=== PATIENT | male | born 1950 | race Caucasian/White ===

== ENCOUNTER → 2016-12-04 | Outpatient (CLI) | payer OTHER ==
[~2016-12-04] MED LIST: HELIOCARE PO; NIACINAMIDE500 MG PO
== END | disposition home or self-care (01) ==
LOC: CDC 08:22
DX: R00.1 Bradycardia, unspecified (principal); I44.4 Left anterior fascicular block
CPT/HCPCS: 93000

== ENCOUNTER 2017-04-05 11:49 | Emergency (ER) | payer OTHER ==
[~2017-04-05] VITALS: Ht 177.8 cm; Wt 90.0 kg
[2017-04-05 12:38] LABS: HEMATOCRIT 44.9 % (38.0-50.0); MCH 31.9 PG (29.0-34.0); MCV 91.3 FL (86-99); MEAN PLAT.VOLUME 11.2 uM^3 (9.0-12.4); PLATELET COUNT 260 K/uL (156-360); RBC DIS.WIDTH-CV 13.7 % (11.8-14.6); RBC DIS.WIDTH-SD 45.4 % (39-53); RED BLOOD COUNT 4.92 M/uL (4.00-5.50); WHITE BLOOD COUNT 9.5 K/uL (4.1-10.2)
[2017-04-05 13:33] LABS: CHLORIDE 110 mEq/L (99-109); POTASSIUM 4.5 mEq/L (3.7-5.4); SODIUM 140 mEq/L (136-147)
[2017-04-05 13:35] LABS: GLUCOSE 116 mg/dL (70-99)
[2017-04-05 13:36] LABS: ANION GAP 5 MEQ/L (2-14)
[2017-04-05 13:37] LABS: TOTAL BILIRUBIN 0.5 mg/dL (0.0-1.0)
[2017-04-05 13:38] LABS: ALKALINE PHOSPHATASE 71 IU/L (3-129)
[2017-04-05 13:39] LABS: GFR ESTIMATE (CALCULATED) > 59 mL/min/
[2017-04-05 13:40] LABS: UREA NITROGEN (BUN) 16 mg/dL (9-23)
[2017-04-05 13:42] LABS: LIPASE 11 U/L (1.0-51.0)
[2017-04-05 15:36] LABS: ADD MIUA? YES; BILIRUBIN NEGATIVE; BLOOD MODERATE; COLOR YELLOW ((YELLOW)); GLUCOSE (STRIP) NEGATIVE; KETONES NEGATIVE; LEUKOCYTES NEGATIVE; NITRITE NEGATIVE; PROTEIN (STRIP) NEGATIVE; SPECIFIC GRAVITY 1.015 (1.000-1.030); UROBILINOGEN 0.2 MG/DL (0.2-1.0)
[2017-04-05 15:44] LABS: BACTERIA RARE /HPF; EPITHELIAL CELLS NONE SEEN /HPF; MUCUS TRACE /LPF; UCUL ADDED? NO; WHITE BLOOD CELLS 0-5 /HPF (0-5)
[2017-04-05] MEDS ORDERED: MOTRIN800 MG PO (16:07)
[2017-04-05 17:13] VITALS: BP 132/79
== END 2017-04-05 17:13 | disposition home or self-care (01) ==
LOC: EME 11:49
DX: N20.0 Calculus of kidney (principal); R19.7 Diarrhea, unspecified; Z85.828 Personal history of other malignant neoplasm of skin
CPT/HCPCS: 74176; 80053; 81003; 83690; 85027; 99281; 99284; J1885; J2270; J2405

== ENCOUNTER 2017-05-04 11:32 | Day surgery (SDC) | payer OTHER ==
[~2017-05-04] VITALS: Ht 177.8 cm; Wt 89.8 kg
[~2017-05-04 11:32] MED LIST changes: +MOTRIN800 MG PO
[2017-05-04 12:15] VITALS: BP 167/98
[2017-05-04 15:16] VITALS: BP 149/74
[2017-05-04 15:40] VITALS: BP 136/86
[2017-05-04 16:10] VITALS: BP 138/70
[2017-05-04 16:50] VITALS: BP 140/80
== END 2017-05-04 17:02 | disposition home or self-care (01) ==
LOC: SDC 11:32
PROVIDERS: Urology
DX: N20.1 Calculus of ureter (principal); I11.9 Hypertensive heart disease without heart failure; I77.810 Thoracic aortic ectasia; R00.1 Bradycardia, unspecified; Z85.828 Personal history of other malignant neoplasm of skin; Z88.2 Allergy status to sulfonamides; I44.4 Left anterior fascicular block
CPT/HCPCS: 82365 90; C1726; C1769; C2625; J0330; J1100; J1170; J1580; J2250; J2405; J3010

== ENCOUNTER → 2017-05-17 | Outpatient (CLI) | payer OTHER | END | disposition home or self-care (01) | LOC: RAD 05-16 13:00 → EDSTATUS 13:00 | DX: I71.2 Thoracic aortic aneurysm, without rupture (principal); I10 Essential (primary) hypertension; R94.31 Abnormal electrocardiogram [ECG] [EKG] | CPT/HCPCS: 75571 ==